=== PATIENT | male | born 1975 ===

== ENCOUNTER 2019-11-15 16:35 | Inpatient (IN) ==
[2019-11-15] MEDS ORDERED: ONDANSETRON 4 MG/2 ML VIAL IV PRN (18:26)
[2019-11-15] MEDS ORDERED: MORPHINE 4 MG/1 ML VIAL IV PRN (18:26)
[2019-11-15] MEDS ORDERED: DEXTROSE 50% 25 GM/50 ML VIAL IV PRN (18:28)
[2019-11-15] MEDS ORDERED: DEXTROSE 10% 250 ML BAG IV PRN (18:28)
[2019-11-15] MEDS ORDERED: GLUCAGON 1 MG VIAL IM PRN (18:28)
[2019-11-15] MEDS ORDERED: GENTAMICIN INJ 140 MG in SODIUM CHLORIDE 0.9% 100 ML IV STA (18:33)
[2019-11-15] MEDS ORDERED: MIDAZOLAM 2 MG/2 ML VIAL ONE (18:38)
[2019-11-15] MEDS ORDERED: LACTATED RINGERS 1,000 ML IV ONE (18:38)
[2019-11-15] MEDS ORDERED: ONDANSETRON 4 MG/2 ML VIAL ONE (18:38)
[2019-11-15] MEDS ORDERED: LIDOCAINE 2% 5 ML VIAL ONE (18:38)
[2019-11-15] MEDS ORDERED: SEVOFLURANE 1 UNIT/15 MINUTE INH ONE (18:38)
[2019-11-15] MEDS ORDERED: fentaNYL 100 MCG/2 ML VIAL ONE (18:38)
[2019-11-15] MEDS ORDERED: propofoL 200 MG/20 ML VIAL IV ONE (18:38)
[2019-11-15] MEDS: INSULIN REGULAR 100 UNIT/ML SUBCUT SCH (21:06)
[2019-11-15] MEDS: SODIUM CHLORIDE 0.45% 1,000 ML IV SCH (21:06)
[2019-11-16] MEDS: AMPICILLIN/SULBACTAM 3,000 MG in SODIUM CHLORIDE 0.9% 100 ML IV SCH ×4 (00:11→17:25)
[2019-11-16] MEDS: GENTAMICIN INJ 150 MG in SODIUM CHLORIDE 0.9% 100 ML IV SCH ×3 (02:49→19:42)
[2019-11-16 06:13] LABS: Basophils # 0.1 10*3/uL (0.0-0.2); Basophils % 0.4 % (0.0-0.8); Eosinophils # 0.1 10*3/uL (0.0-0.87); Eosinophils % 0.8 % (0.00-10.9); Hematocrit 40.8 VOL% (42.0-52.0); Immature Granulocytes % 1.3 %; Immature Granulocytes Absolute 0.21 #; Lymphocytes # 2.9 10*3/uL (1.4-4.0); Lymphocytes % 18.3 % (21.2-54.2); Mean Corpuscular HGB Conc 34.3 GM/DL (32-36); Mean Corpuscular Volume 91.7 FL (87-102); Mean Platelet Volume 9.3 FL (9.6-12.0); Monocytes % 9.3 % (1.7-12.7); Neutrophils % 69.9 % (38.7-73.9); Platelet Count 243 T/CUMM (130-400); Red Blood Count 4.45 MC/CUMM (3.8-5.5); Red Cell Distribution Width 12.8 % (9.3-17.3); White Blood Count 15.9 T/CUMM (4-12)
[2019-11-16 06:28] LABS: Calcium 8.3 MG/DL (8.5-10.1)
[2019-11-16] MEDS: SODIUM CHLORIDE 0.45% 1,000 ML IV SCH ×3 (08:51→17:31)
[2019-11-16] MEDS: INSULIN REGULAR 100 UNIT/ML SUBCUT SCH ×4 (08:52→21:24)
[2019-11-16] MEDS: PANTOPRAZOLE 40 MG TABLET PO SCH (09:17)
[2019-11-16] MEDS: ENOXAPARIN 40 MG/0.4 ML SYRINGE SUBCUT SCH (14:25)
[2019-11-17] MEDS: AMPICILLIN/SULBACTAM 3,000 MG in SODIUM CHLORIDE 0.9% 100 ML IV SCH ×5 (00:17→23:23)
[2019-11-17] MEDS: SODIUM CHLORIDE 0.45% 1,000 ML IV SCH ×4 (01:01→20:32)
[2019-11-17] MEDS: GENTAMICIN INJ 150 MG in SODIUM CHLORIDE 0.9% 100 ML IV SCH (02:28)
[2019-11-17] MEDS: INSULIN REGULAR 100 UNIT/ML SUBCUT SCH ×4 (07:20→20:54)
[2019-11-17] MEDS: PANTOPRAZOLE 40 MG TABLET PO SCH (08:18)
[2019-11-17] MEDS: SODIUM HYPOCHLORITE 0.25% IRRIG 473 ML BOTTLE TOP SCH (10:05)
[2019-11-17] MEDS ORDERED: GENTAMICIN INJ 240 MG in SODIUM CHLORIDE 0.9% 100 ML IV ONE ×2 (11:00→12:00)
[2019-11-17] MEDS: ENOXAPARIN 40 MG/0.4 ML SYRINGE SUBCUT SCH (12:15)
[2019-11-18] MEDS: SODIUM CHLORIDE 0.45% 1,000 ML IV SCH ×3 (04:17→17:46)
[2019-11-18] MEDS: AMPICILLIN/SULBACTAM 3,000 MG in SODIUM CHLORIDE 0.9% 100 ML IV SCH ×3 (05:17→17:45)
[2019-11-18 07:16] LABS: Basophils # 0.1 10*3/uL (0.0-0.2); Basophils % 0.6 % (0.0-0.8); Eosinophils # 0.3 10*3/uL (0.0-0.87); Eosinophils % 3.5 % (0.00-10.9); Hematocrit 39.6 VOL% (42.0-52.0); Hemoglobin 13.4 GM/DL (14.0-18.0); Immature Granulocytes % 1.5 %; Immature Granulocytes Absolute 0.14 #; Lymphocytes # 2.4 10*3/uL (1.4-4.0); Lymphocytes % 25.3 % (21.2-54.2); Mean Corpuscular HGB Conc 33.8 GM/DL (32-36); Mean Platelet Volume 8.8 FL (9.6-12.0); Monocytes % 7.8 % (1.7-12.7); Neutrophils % 61.3 % (38.7-73.9); Platelet Count 253 T/CUMM (130-400); Red Blood Count 4.35 MC/CUMM (3.8-5.5); Red Cell Distribution Width 12.2 % (9.3-17.3); White Blood Count 9.4 T/CUMM (4-12)
[2019-11-18 07:29] LABS: Calcium 8.4 MG/DL (8.5-10.1); Osmolality,Calculated 275.5 MOS/KG (273-304)
[2019-11-18] MEDS: INSULIN REGULAR 100 UNIT/ML SUBCUT SCH ×4 (07:36→22:16)
[2019-11-18] MEDS: PANTOPRAZOLE 40 MG TABLET PO SCH (09:32)
[2019-11-18] MEDS: SODIUM HYPOCHLORITE 0.25% IRRIG 473 ML BOTTLE TOP SCH (09:32)
[2019-11-18] MEDS: GENTAMICIN INJ 400 MG in SODIUM CHLORIDE 0.9% 100 ML IV SCH (11:55)
[2019-11-18] MEDS: ENOXAPARIN 40 MG/0.4 ML SYRINGE SUBCUT SCH (13:28)
[2019-11-19] MEDS: AMPICILLIN/SULBACTAM 3,000 MG in SODIUM CHLORIDE 0.9% 100 ML IV SCH ×3 (01:27→13:06)
[2019-11-19] MEDS: SODIUM CHLORIDE 0.45% 1,000 ML IV SCH ×2 (01:32→13:05)
[2019-11-19] MEDS: INSULIN REGULAR 100 UNIT/ML SUBCUT SCH ×2 (09:07→13:05)
[2019-11-19] MEDS: PANTOPRAZOLE 40 MG TABLET PO SCH (10:09)
[2019-11-19] MEDS: SODIUM HYPOCHLORITE 0.25% IRRIG 473 ML BOTTLE TOP SCH (10:10)
[2019-11-19 12:24] VITALS: BP 146/92
[2019-11-19] MEDS: GENTAMICIN INJ 400 MG in SODIUM CHLORIDE 0.9% 100 ML IV SCH (13:05)
[2019-11-19] MEDS: ENOXAPARIN 40 MG/0.4 ML SYRINGE SUBCUT SCH (13:06)
== END 2019-11-19 14:26 | disposition home or self-care (01) | DRG 623 ==
LOC: EDUNIT# → EDBD → N.ED 16:35 → N.3E 17:49 → N.EDINP 18:26 → N.3E 19:41
PROVIDERS: ADMIT Surgery; ATTEND Surgery